=== PATIENT | female | born 1950 | race Caucasian/White ===

== ENCOUNTER 2021-02-20 07:46 | Outpatient (CLI) | payer MEDICARE, SELFPAY ==
[2021-02-20 08:01] LABS: Hematocrit 43.1 % (35.0-42.0); Hemoglobin 13.9 g/dL (11.7-13.8); Immature Platelet Fraction Pct 3.5 % (1.0-7.0); Mean Corpuscular HGB Conc 32.3 g/dL (32.0-36.0); Mean Corpuscular Hemoglobin 30.2 pg (27.0-31.0); Mean Corpuscular Volume 93.5 fL (78.0-102.0); Mean Platelet Volume 10.9 fl (9.2-11.8); Platelet Count Result 138 K/mm3 (150-420); Red Blood Count 4.61 M/mm3 (4.20-5.40); Red Cell Distribution Width 13.5 % (11.6-14.4); White Blood Count 5.2 K/mm3 (4.8-10.8)
[2021-02-20 09:40] LABS: Alanine Aminotransferase 7 U/L (14-59); Albumin Level 3.3 g/dL (3.4-5.0); Alkaline Phosphatase 97 U/L (46-116); Anion Gap 11 mmol/L (8-16); Aspartate Amino Transferase 26 U/L (15-37); Bilirubin,Total 0.9 mg/dL (0.00-1.00); Blood Urea Nitrogen 10 mg/dL (7-18); Calcium 8.1 mg/dL (8.5-10.1); Carbon Dioxide 28 mmol/L (21-32); Chloride 107 mmol/L (98-108); Cholesterol 163 mg/dL (0-200); Estimated Glomerular Filt Rate > 60; Glucose 90 mg/dL (70-99); HDL Direct 64 mg/dL (40-60); LDL Cholesterol Calculated 87 mg/dL (<130); Osmolality Calculated 301 mOsm/kg (285-295); Potassium 4.1 mmol/L (3.5-5.1); Sodium 146 mmol/L (136-145); Total Protein 7.4 g/dL (6.4-8.2); Triglycerides 58 mg/dL (0-150)
== END 2021-02-20 07:47 | disposition home or self-care (01) ==
LOC: CHSLAB 07:53
PROVIDERS: PCP Family Medicine; Visit Provider Family Medicine
DX: R03.0 Elevated blood-pressure reading, without diagnosis of hypertension (principal); E66.9 Obesity, unspecified
CPT/HCPCS: 36415; 80053; 80061; 85027; 85055

== ENCOUNTER 2021-05-25 13:30 | Outpatient (CLI) | payer MEDICARE, SELFPAY ==
--- NOTE | ~2021-05-25 | XR_ITS ---
EXAMINATION: XR knee LT 3V DATE: 05/25/2021 13:56 INDICATION: Left knee pain. TECHNIQUE: 3 views of left knee on 4 radiographs were obtained. COMPARISON: None. FINDINGS: Bone alignment is normal. No fracture. There is diffuse osteopenia. There is moderate osteo arthritis of medial compartment, severe osteoarthritis of patellofemoral compartment, and mild osteoa rthritis of lateral compartment. No knee joint effusion. IMPRESSION: 1. Severe left knee osteoarthritis. Reviewed, dictated and finalized at location A.
== END 2021-05-25 13:31 | disposition home or self-care (01) ==
LOC: CHSIMG 13:32
PROVIDERS: PCP Family Medicine; Visit Provider Family Medicine
DX: M25.562 Pain in left knee (principal)
CPT/HCPCS: 73562

== ENCOUNTER 2022-09-24 12:19 | Outpatient (NON) | payer MEDICARE, SELFPAY | END 2022-09-24 12:20 | disposition home or self-care (01) | LOC: CHSLAB 12:21 | PROVIDERS: Visit Provider Nurse Practitioner Family | DX: N63.0 Unspecified lump in unspecified breast (principal) | CPT/HCPCS: 87070; 87075; 87205 ==

== ENCOUNTER 2022-10-03 08:56 | Outpatient (CLI) | payer MEDICARE, SELFPAY ==
--- NOTE | ~2022-10-03 | MMUS_ITS ---
EXAMINATION: MM diagnostic sbyil BI w arben, US breast RT limited HISTORY: Patient with history of right breast cancer presents with palpable lump/skin lesion of the r ight breast TECHNIQUE: Craniocaudal, mediolateral, and mediolateral oblique 3-D tomosynthesis images of the breas ts were performed and synthetic 2-D images were generated. CAD analysis was submitted and interpreted . High resolution limited right breast ultrasound was performed. COMPARISON: 06/13/2016 BREAST PARENCHYMAL COMPOSITION: The breasts are almost entirely fatty. FINDINGS: MAMMOGRAPHIC FINDINGS: Right breast: There are lumpectomy changes in the right breast. There is a 1.5 x 1.0 cm hypodensity, lobulated mass of the skin of the lower breast projecting at the surgical scar. Left breast: No suspicious mass, calcification, or architectural distortion are identified to suggest malignancy. There has been no suspicious interval change. ULTRASOUND: There is a 1.5 x 0.7 cm oval, parallel isoechoic mass with a 6 mm internal hypoechoic component, post erior acoustic enhancement and associated internal vascularity at the 6:00 location near the nipple c orresponding to the palpable abnormality of concern. IMPRESSION: 1. Indeterminate mass of the right breast corresponding to the visual/palpable abnormality of concern . 2. Biopsy is recommended, surgical versus punch biopsy. BI-RADS category 4, suspicious findings. Reviewed, dictated and finalized at location A. [employer]AIR IMPRESSION: 1. Indeterminate mass of the right breast corresponding to the visual/palpable abnormality of concern. 2. Biopsy is recommended, surgical versus punch biopsy. BI-RADS category 4, suspicious findings.
== END 2022-10-03 08:57 | disposition home or self-care (01) ==
LOC: CHSIMG 08:59
PROVIDERS: PCP Nurse Practitioner Family; Visit Provider Nurse Practitioner Family
DX: N63.10 Unspecified lump in the right breast, unspecified quadrant (principal); Z85.3 Personal history of malignant neoplasm of breast; R92.8 Other abnormal and inconclusive findings on diagnostic imaging of breast
CPT/HCPCS: 76642; 77062; 77066; G0279

== ENCOUNTER 2022-10-16 00:38 | Day surgery (SDC) | payer MEDICARE, SELFPAY ==
[2022-10-09 08:58] VITALS: BMI 45.9
--- NOTE | 2022-10-09 09:19 | PC.NURSE ---
Addendum entered by Corinne Wallace RN 10/09/22 09:20: HIBICLEWALTER SHOWER MORNING OF SURGERY, PT RELAYS UNDERSTANDING. Original Note: Report to the Outpatient Waiting Room, entrance under the green pavilion located off [address], at time __11:30AM on date __10/16/22 . Planned Procedure Time: _1:30PM . Time changes happen often and if your time is changed the preop area will call you the afternoon before. - You and your visitor will be asked to self-screen and do not enter if you have any COVID symptoms. - Only one visitor is requested with a max of two and NO children visitors are allowed at this time. - The patient visitor may be requested to leave or wait in car when not with patient due to distancing restrictions. - A mask is optional within the hospital at this time. Patients may have clear liquids (water, carbonated beverages, clear teas, apple juice) until 3 hours prior to surgery with a maximum of 20 ounces. - No food from midnight until time of surgery Take the following medications with a SIP of water the morning of surgery: __NONE DO NOT STOP ANY OF YOUR OTHER PRESCRIPTION MEDICATIONS PRIOR TO SURGERY ?EXCEPT THE FOLLOWING Medications to discontinue per physician NONE Date to take last dose Please no make-up, nail austrian, hairspray, perfume, deodorant, or body powder the day of surgery. No jewelry (including any body piercings) or valuables the day of surgery, leave them at home. Please take a shower or bath the night before, or the morning of, surgery with an antibacterial soap. Wear comfortable, loose fitting clothing. Children are encouraged to wear pajamas. - Jewelry must be removed prior to entering the operating room. Rings and piercings that are not removed may be cut off. - The hospital will not accept responsibility for valuables. - Please leave all valuables, including medications, at home the day of surgery. If you are going home after surgery, a licensed local company hazmat driver must drive you home. - NO public transportation without another adult if you receive anesthesia. - We recommend that an adult stay with you for 24 hours following discharge. - We also recommend that you do not drive, make important decision, drink alcoholic beverages, or take any drugs that were not prescribed by your health care provider for at least 24 hours after your discharge time. Follow any additional instructions given to you from your surgeon. If you or anyone in your household have experienced Covid symptoms in the past week, please notify your surgeon or the nurse liaison at the phone number below for possible testing. Telephone instructions given to __PATIENT and asked if any additional questions and then verbalized understanding. Patient advised to call surgeon office or pre surgery nurse liaison [phone] if any additional questions.
[2022-10-16 11:35] VITALS: BP 149/82; PULSE 80; RESP 16; TEMP 36.3; O2SAT 99
[2022-10-16] MEDS: ACETAMINOPHEN 500 MG TABLET 1000 MG PO (11:44)
[2022-10-16] MEDS: LACTATED RINGERS 1,000 ML 30 ML IV CONT (12:00)
--- NOTE | 2022-10-16 12:00 | P.PNAN_ITS ---
Anes - Initial Pre Proc Eval Procedure: Operation Date: 10/16/22 13:30 Proposed Procedures p Excisional Biopsy Right Breast Mass - Jaelyn Dick MD Date/Time: 10/16/22 12:00 Surgeon: Jaelyn Dick MD Pre Op Diagnosis: right breast mass Patient Data Age: 71 Gender: F Height: 1.57 m Weight: 114 kg Allergies Allergy/AdvReac Type Severity Reaction Status Date / Time No Known Allergies Allergy Verified 10/16/22 11:41 Home Medications Medication Instructions Recorded Confirmed Type acetaminophen 500 mg tablet 1,000 mg PO HS 10/09/22 10/16/22 History diphenhydramine HCl 25 mg capsule 50 mg PO HS 10/09/22 10/16/22 History Patient hx anesthesia problems: none Family hx anesthesia problems: none Results Review: All pre-operative results and documents have been reviewed as part of the pre- operative evaluation. [facility] Past Medical History Medical History History of breast cancer Dx'd 2016 No active medical problems Surgical History Surgical History History of appendectomy History of cholecystectomy S/P lumpectomy of breast 2018 Family History Family History Father Alzheimer disease Mother Cancer Unknown Diabetes mellitus Heart disease Hypertension Cancer Social History Social History Smoking status: Never smoker Alcohol intake: current Substance use: never Living arrangements: alone Spiritual care concerns: No Anes - Eval Final PreProcedure Day of Procedure 10/16/22 12:00 Patient weight: morbidly obese Heart: regular rate and rhythm Lungs: clear to auscultation Airway: Mallampati scale class II Neurological: alert and oriented Last oral intake: >/= 8 hours ASA classification: III Emergent: no Anesthetic plan: proceed Anesthesia type and monitoring: general GIVS and standard monitoring Results Review: All pre-operative results and documents have been reviewed as part of the pre- operative evaluation. Informed Consent: The patient's anesthetic plan and its attendant risks and benefits were discussed with the patient/family/POA. Questions were solicited and answers provided to the satisfaction of the patient/family/POA.
[2022-10-16] MEDS: KETOROLAC 15 MG/ML VIAL (*BKC) IV PUSH (12:01)
--- NOTE | 2022-10-16 12:02 | WPDHPUPDATE1 ---
History and Physical Update Update Date/Time: 10/16/22 12:02 History and Physical has been reviewed, including an updated exam of the patient. There are NO changes in the patient's condition. Risks, benefits, and alternatives have been discussed and questions answered. Patient agrees to proceed with procedure.
[2022-10-16] MEDS: ceFAZolin 2 GM/D5W 50 ML 2 GM/50 ML BAG IVPB (12:06)
[2022-10-16] MEDS: BUPIVACAINE/EPINEPHRINE 0.25% 50 ML VIAL 10 ML INFILTRATE (12:40)
--- NOTE | 2022-10-16 12:51 | W.PM.PROC2 ---
Procedure Note - Detailed Date of Procedure 10/16/22 Pre-op Diagnosis right breast mass Post-op Diagnosis Same Procedure Performed Right breast lumpectomy Surgeon Jaelyn Dick MD Anesthesia General Indications 71-year-old female with history of right breast cancer presenting with fungating mass overlying previous lumpectomy incision Findings 2 x 2 cm fungating mass projecting over previous lumpectomy incision Description of Procedure The patient was taken to the operating room and placed in the supine position. After adequate induction of general anesthesia, the patient was prepped and draped in the normal sterile fashion. A time-out was then done to verify the patient's identity, as well as the procedure being performed. I then made an elliptical incision in the dermis encompassing this fungating mass in the lower portion of her right breast. The mass measured approximately 2 x 2 cm. The incision was taken down through the dermis and into the breast tissue. I did excise some of the underlying breast tissue although no obvious mass was noted there was some scar tissue as well as calcification. Once this area was excised, I did rubens the specimen with a short stitch superiorly and a long stitch laterally. There was an area of fullness, calcification in the posterior bed of our excision site. Given this, I did go ahead and excise further posterior margin. These areas will be sent to pathology for further review. I then copiously irrigated the cavity. Local anesthetic was placed in the cavity. Hemostasis was gained with the Bovie cautery. The subcutaneous tissue was closed with 3-0 Vicryl suture. The skin was closed with 4-0 Monocryl subcuticular suture. Dermabond was placed on the wound. The patient tolerated the procedure well and will be transferred to the recovery room in stable condition. Estimated Blood Loss 5 Pathology Yes Complications No immediate complications Condition Stable Disposition PACU [facility] Billing Surgery - Charge Forward: Surgery Billing
[2022-10-16 12:53] VITALS: BP 111/63; PULSE 85; RESP 14; O2SAT 91
[2022-10-16 13:20] VITALS: BP 125/81; PULSE 66; O2SAT 92
[2022-10-16 13:50] VITALS: BP 138/78; PULSE 65
== END 2022-10-16 14:00 | disposition home or self-care (01) ==
PROVIDERS: PCP Nurse Practitioner Family; Visit Provider Surgery
PROC: (CPT 19301; principal; 2022-10-16 13:30)
DX: C50.811 Malignant neoplasm of overlapping sites of right female breast (principal); E66.01 Morbid (severe) obesity due to excess calories; Z68.42 Body mass index [BMI] 45.0-49.9, adult
CPT/HCPCS: 19301; 88307; 88342; A9270; J0690; J1100; J1885; J2405; J2704; J7120

== ENCOUNTER 2022-11-07 12:05 | Outpatient (CLI) | payer MEDICARE, SELFPAY ==
--- NOTE | ~2022-11-07 | PE_ITS ---
EXAMINATION: PET skull to mid thigh DATE: 11/07/2022 14:29 INDICATION: Malignant neoplasm of right breast. TECHNIQUE: Blood glucose level was 88 mg/dL. 9.815 mCi of 18-fluorodeoxyglucose (18-FDG) was administ ered i.v. Low dose computed tomography (CT) images were acquired from the base of the brain to the pr oximal thighs for attenuation correction and anatomic localization. Automated exposure control was em ployed. Dose-length product (DLP) was 1116 mGy-cm. Positron emission tomography (PET) images were acq uired in the same distribution. COMPARISON: None FINDINGS: Head/neck: There are no pathologically enlarged lymph nodes. Chest: There is no pneumonia or pleural effusion. The heart size is normal. There are coronary artery calcifications. No pericardial effusion. There are no pathologically enlarged lymph nodes. There is a 5.6 x 4.3 cm mass in right breast measuring low-attenuation without increased activity, likely post surgical change. The right breast demonstrates skin thickening with increased activity. There are mul tiple healing left rib fractures. Abdomen/pelvis/proximal thighs: The liver demonstrates surface nodularity, consistent with cirrhosis. There is mild splenomegaly. There is a splenorenal portacaval shunt. The pancreas, adrenal glands, a nd kidneys are normal. There are no dilated loops of bowel. The appendix is not visualized. There are no pathologically enlarged lymph nodes. There is no free intraperitoneal fluid. There is no osseous malignancy. IMPRESSION: 1. Skin thickening with increased activity in right breast, most likely inflammation. 2. No evidence of metastatic disease. 3. Cirrhosis of the liver with portal venous hypertension. Reviewed, dictated and finalized at location A. IMPRESSION: 1. Skin thickening with increased activity in right breast, most likely inflamm ation. 2. No evidence of metastatic disease. 3. Cirrhosis of the liver with portal venous hypertension.
[2022-11-07 12:37] LABS: Glucose Point of Care 88 mg/dl (65-105)
== END 2022-11-07 12:06 | disposition home or self-care (01) ==
LOC: ANHIMG 12:09
PROVIDERS: PCP Nurse Practitioner Family; Visit Provider Surgery
DX: C50.511 Malignant neoplasm of lower-outer quadrant of right female breast (principal); K74.60 Unspecified cirrhosis of liver; K76.6 Portal hypertension; R23.4 Changes in skin texture
CPT/HCPCS: 78815; A9552

== ENCOUNTER 2022-12-16 11:16 | Outpatient (CLI) | payer MEDICARE, SELFPAY | END 2022-12-16 11:17 | disposition home or self-care (01) | PROVIDERS: PCP Family Medicine; Visit Provider Surgery | DX: C50.911 Malignant neoplasm of unspecified site of right female breast (principal); Z01.818 Encounter for other preprocedural examination | CPT/HCPCS: 36415; 86850; 86900; 86901 ==

== ENCOUNTER 2022-12-19 01:13 | Day surgery (SDC) | payer MEDICARE, SELFPAY ==
--- NOTE | 2022-12-11 12:53 | PC.NURSE ---
Report to the Outpatient Waiting Room, entrance under the green pavilion located off [facility], at time __0600 on date _12/19/22 . Planned Procedure Time: 729 . Time changes happen often and if your time is changed the preop area will call you the afternoon before. - You and your visitor will be asked to self-screen and do not enter if you have any COVID symptoms. - A mask is optional within the hospital at this time. Patients may have clear liquids (water, carbonated beverages, clear teas, apple juice) until 3 hours prior to surgery with a maximum of 20 ounces. - No food from midnight until time of surgery - Infants may have breast milk until 4 hours before surgery, infant formula 6 hours prior to surgery. - Children will be allowed to drink immediately following surgery. If applicable, please bring a bottle or sippy cup to assist with drinking. Juice, water, soda, and popsicles are readily available. For infants on formula, please bring formula the day of surgery. Pacifiers are allowed. Take the following medications with a SIP of water the morning of surgery: ___NONE DO NOT STOP ANY OF YOUR OTHER PRESCRIPTION MEDICATIONS PRIOR TO SURGERY ?EXCEPT THE FOLLOWING Medications to discontinue per physician NONE Date to take last dose HIBICLENS SHOWER MORNING OF SURGERY Please no make-up, nail sudanese, hairspray, perfume, deodorant, or body powder the day of surgery. No jewelry (including any body piercings) or valuables the day of surgery, leave them at home. Please take a shower or bath the night before, or the morning of, surgery with an antibacterial soap. Wear comfortable, loose fitting clothing. Children are encouraged to wear pajamas. - Jewelry must be removed prior to entering the operating room. Rings and piercings that are not removed may be cut off. - The hospital will not accept responsibility for valuables. - Please leave all valuables, including medications, at home the day of surgery. If you are going home after surgery, a licensed otr company truck driver must drive you home. - NO public transportation without another adult if you receive anesthesia. - We recommend that an adult stay with you for 24 hours following discharge. - We also recommend that you do not drive, make important decision, drink alcoholic beverages, or take any drugs that were not prescribed by your health care provider for at least 24 hours after your discharge time. For Pediatric surgeries, we recommend two adults accompany the child home. Follow any additional instructions given to you from your surgeon. If you or anyone in your household have experienced Covid symptoms in the past week, please notify your surgeon or the nurse liaison at the phone number below for possible testing. Telephone instructions given to _PATIENT and asked if any additional questions and then verbalized understanding. Patient advised to call surgeon office or pre surgery nurse liaison [phone] if any additional questions.
[2022-12-11 12:59] VITALS: BMI 45.5
--- NOTE | 2022-12-18 14:05 | P.PNAN_ITS ---
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 Patient Data Age: 71 Gender: F Height: 1.57 m Weight: 112.95 kg Allergies Allergy/AdvReac Type Severity Reaction Status Date / Time No Known Allergies Allergy Verified 12/19/22 06:36 Home Medications Medication Instructions Recorded Confirmed Type acetaminophen 500 mg tablet 1,000 mg PO HS 10/09/22 12/19/22 History diphenhydramine HCl 25 mg capsule 50 mg PO HS 10/09/22 12/19/22 History docusate sodium 100 mg capsule 100 mg PO BID #30 caps 10/16/22 12/11/22 Rx (Colace) Patient hx anesthesia problems: none Family hx anesthesia problems: none Results Review: All pre-operative results and documents have been reviewed as part of the pre- operative evaluation. [facility] Past Medical History Medical History (Updated 12/18/22 @ 14:06 by Shayan Sorenson DO) History of breast cancer dx 2017, history of right breast lumpectomy in 2018. Surgical History Surgical History (Updated 12/18/22 @ 14:06 by Shayan Sorenson DO) History of appendectomy History of cholecystectomy History of gastric bypass History of lumpectomy of right breast 10/16/2022 S/P lumpectomy of breast 2018 Family History Family History Father Alzheimer disease Mother Cancer Unknown Diabetes mellitus Heart disease Hypertension Cancer Social History Social History Smoking status: Never smoker Alcohol intake: current Substance use: never Living arrangements: alone Spiritual care concerns: No Anes - Eval Final PreProcedure Day of Procedure 12/18/22 14:05 Patient weight: morbidly obese Heart: regular rate and rhythm Lungs: clear to auscultation Airway: Mallampati scale class III and special considerations poor dentition (loose on bottom) Neurological: alert and oriented Last oral intake: >/= 8 hours ASA classification: III Emergent: no Anesthetic plan: proceed Anesthesia type and monitoring: general ETT and standard monitoring Results Review: All pre-operative results and documents have been reviewed as part of the pre- operative evaluation. Informed Consent: The patient's anesthetic plan and its attendant risks and benefits were discussed with the patient/family/POA. Questions were solicited and answers provided to the satisfaction of the patient/family/POA.
[2022-12-19] VITALS (13 sets, daily range): BP systolic 116–150; BP diastolic 57–96; PULSE 64–93; RESP 12–18; TEMP 36.2–36.7; O2SAT 94–98
[2022-12-19] MEDS: ACETAMINOPHEN 500 MG TABLET 1000 MG PO (06:31)
[2022-12-19] MEDS: LACTATED RINGERS 1,000 ML 30 ML IV CONT (06:48)
[2022-12-19] MEDS: KETOROLAC 15 MG/ML VIAL (*BKC) IV PUSH (06:49)
--- NOTE | 2022-12-19 07:21 | WPDHPUPDATE1 ---
History and Physical Update Update Date/Time: 12/19/22 07:21 History and Physical has been reviewed, including an updated exam of the patient. There are NO changes in the patient's condition. Risks, benefits, and alternatives have been discussed and questions answered. Patient agrees to proceed with procedure.
[2022-12-19] MEDS: ceFAZolin 2 GM/D5W 50 ML 2 GM/50 ML BAG IVPB (07:29)
[2022-12-19] MEDS: BUPIVACAINE/EPINEPHRINE 0.5% 50 ML VIAL 30 ML INFILTRATE (08:08)
--- NOTE | 2022-12-19 09:32 | P.OP_ITS ---
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 Patient has had previous right breast lumpectomy, adjuvant chemo radiation for breast cancer. Findings Inflammatory changes of the right breast dermis involving previous biopsy site Description of Procedure The patient was taken the operating room and placed in the supine position. After induction of general anesthesia, the patient was prepped and draped in the normal sterile fashion. A time-out was then done to verify the patient's identity as well as the procedure being performed. I then made the incision in the left breast. This was done in a elliptical shape to allow good skin closure. Once incision was made, this was taken down to the breast tissue. I then began to make my superior by the breast tissue off the overlying dermis. This was done until we reached the clavicle. I then made my inferior flap by the breast tissue off the overlying dermis to the inframammary fold. The medial margin was taken to the sternum and the lateral margin was taken to the anterior border of the latissimus. Once these margins were achieved, I began to take the breast tissue off the underlying chest wall. I was then able to detach the breast tissue completely and this was sent to pathology for further review. The the specimen was marked with a short stitch superiorly and a long stitch laterally. At this point I copiously irrigated the cavity. No other obvious pathology was noted. I left a 15 New Zealander drain in the mastectomy bed coming out through an incision in the left lateral chest wall. The incision was then closed with interrupted 3-0 Vicryl sutures in the subcutaneous space. Skin was closed with 4-0 Monocryl subcuticular suture. I then proceeded to the right side. Of note, the area of the previous biopsy and inferior breast had his skin thickening, as well as darkening of the dermis. I made the incision to incorporate this skin in the excision site. Again the incision was taken down to the breast tissue and flaps were raised both superior and inferior. The same margins were used as before, superior to the clavicle, inferior to the inframammary fold, medial to the sternum, and lateral to the anterior border of the latissimus. The tissue was then removed from the underlying pectoral muscle. Once removed, the specimen was marked with a short stitch superiorly and a long stitch laterally. Again I copiously irrigated the cavity and no other gross pathology was noted. I then left a 15 New Zealander drain in the mastectomy bed coming out of an incision in the right lateral chest wall. I then closed the subcutaneous tissue with interrupted 3-0 Vicryl suture. The skin was closed with 4-0 Monocryl subcuticular suture. The patient tolerated the procedure well and was extubated in the operating room postoperatively. She will be sent to the recovery room in stable condition. Estimated Blood Loss 100 Drains Yes Pathology Yes Complications No immediate complications Condition Stable Disposition PACU [facility] Billing Surgery - Charge Forward: Surgery Billing
[2022-12-19] MEDS: fentaNYL CITRATE INJ (*CRX) 100 MCG/2 ML VIAL 25 MCG IV PUSH ×6 (09:51→10:38)
--- NOTE | 2022-12-19 10:50 | SUR.PHASEI ---
Spoke with Dr. Dick regarding if it was okay to use patient's arms d/t bilateral mastectomy. States okay for blood draws and/or BP in either arm.
--- NOTE | 2022-12-19 11:32 | ADMGEN ---
This patient, Faiza Davis, was admitted to Medical Room 251-01. Patient/family oriented to hospital policies and general routines including ID bracelet, bed and alarms, visiting hours, pain management, procedures, bathroom and other care routines, personal items, smoking policy, room service/diet, and visiting hours. Information on how to activate the Rapid Response Team has been discussed. Patient/Family are encouraged to report perceived risks to care and to ask questions if they do not understand what they are told or what they should do.
[2022-12-19] MEDS: LACTATED RINGERS 1,000 ML 100 ML IV CONT (11:33)
[2022-12-19] MEDS: HYDROcodone/acetaminophen (*CRX) 7.5-325 MG TABLET 1 TAB PO (15:36)
[2022-12-19] MEDS: DOCUSATE SODIUM 100 MG CAPSULE PO (17:02)
[2022-12-19] MEDS: MORPHINE SULFATE (*CRX) 2 MG/ML INJ IV PUSH (17:02)
[2022-12-20 01:30] VITALS: BP 123/63; PULSE 66; RESP 16; TEMP 36.6; O2SAT 98
[2022-12-20] MEDS: MORPHINE SULFATE (*CRX) 2 MG/ML INJ IV PUSH (02:55)
[2022-12-20 05:20] VITALS: BP 124/58; PULSE 72; RESP 18; TEMP 36.7; O2SAT 98
[2022-12-20] MEDS: DOCUSATE SODIUM 100 MG CAPSULE PO (08:16)
[2022-12-20] MEDS: ENOXAPARIN 40 MG/0.4 ML SYRINGE SUB-Q (08:16)
--- NOTE | 2022-12-20 08:43 | PM.PNGS ---
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 - Malignant neoplasm of unspecified site of right female breast Status: Acute Assessment and Plan: doing well, s/p bilateral mastectomy, await path, ok to dc home today Subjective Subjective Date/Time Seen: 12/20/22 08:43 Interval history: feels good, pain controlled, mary diet Review of Systems Review of Systems: All systems reviewed & are unremarkable except as noted in HPI and below Exam Const: General: cooperative, comfortable and no acute distress Chest: Other: bilateral mastectomy sites - C/D/I, FRANCINE x 2 c mod s/s drainage Resp: Auscultation: clear to auscultation bilaterally Cardio: Rate: regular rate Rhythm: regular rhythm GI: Inspection: normal to inspection Objective Data Vital Signs Vital Signs: Vital Signs - 24 hr 12/19/22 09:40 12/19/22 09:55 12/19/22 10:05 Temperature 36.4 C L Pulse Rate 69 69 Respiratory Rate 14 12 Blood Pressure 122/66 116/66 Pulse Oximetry 95 95 Oxygen Delivery Simple Face Mask Simple Face Mask Nasal Cannula Oxygen Flow Rate 8 8 2 12/19/22 10:10 12/19/22 10:25 12/19/22 10:40 Temperature Pulse Rate 71 64 70 Respiratory Rate 16 12 16 Blood Pressure 123/69 124/68 124/66 Pulse Oximetry 95 95 97 Oxygen Delivery Nasal Cannula Nasal Cannula Nasal Cannula Oxygen Flow Rate 2 2 2 12/19/22 10:55 12/19/22 11:35 12/19/22 11:50 Temperature 36.4 C Pulse Rate 75 71 72 Respiratory Rate 18 18 18 Blood Pressure 120/71 127/57 L 130/64 Pulse Oximetry 97 94 95 Oxygen Delivery Nasal Cannula Oxygen Flow Rate 2 12/19/22 12:20 12/19/22 13:20 12/19/22 17:20 Temperature 36.4 C L 36.4 C 36.2 C L Pulse Rate 77 77 78 Respiratory Rate 18 18 18 Blood Pressure 122/61 119/64 119/64 Pulse Oximetry 96 98 95 Oxygen Delivery Oxygen Flow Rate 12/19/22 19:40 12/19/22 20:45 12/20/22 01:30 Temperature 36.7 C 36.6 C Pulse Rate 70 66 Respiratory Rate 16 16 Blood Pressure 134/84 123/63 Pulse Oximetry 97 98 Oxygen Delivery Room Air Oxygen Flow Rate 12/20/22 05:20 Temperature 36.7 C Pulse Rate 72 Respiratory Rate 18 Blood Pressure 124/58 L Pulse Oximetry 98 Oxygen Delivery Oxygen Flow Rate Intake/Output Intake/Output: Intake & Output 12/17/22 12/18/22 12/19/22 12/20/22 23:59 23:59 23:59 23:59 Intake Total 910 300 Output Total 70 125 Balance 840 175 Meds/Results Medications: Active Medications Generic Name Dose Route Start Last Admin Trade Name Freq PRN Reason Stop Dose Admin Acetaminophen 500 mg 12/19/22 09:27 Acetaminophen 500 Mg Tablet PO Q6H PRN Mild Pain (1-3) or Fever Hydrocodone Bitart/Acetaminophen 1 tab 12/19/22 09:27 12/19/22 15:36 Hydrocodone/Acetaminophen (*Crx) 7.5-325 Mg Tablet PO 1 tab Q4H PRN Administration Pain Rated 7-10 Hydrocodone Bitart/Acetaminophen 1 tab 12/19/22 15:43 Hydrocodone/Acetaminophen (*Crx) 5-325 Mg Tablet PO Q4H PRN Pain Rated 4-6 Diphenhydramine HCl 25 mg 12/19/22 09:27 Diphenhydramine Hcl Inj 50 Mg/Ml Vial IV PUSH Q6H PRN Itching Docusate Sodium 100 mg 12/19/22 17:00 12/20/22 08:16 Docusate Sodium 100 Mg Capsule PO 100 mg BID NOEL Administration Enoxaparin Sodium 40 mg 12/20/22 09:00 12/20/22 08:16 Enoxaparin 40 Mg/0.4 Ml Syringe SUB-Q 40 mg DAILY NOEL Administration Morphine Sulfate 4 mg 12/19/22 09:27 Morphine Sulfate (*Crx) 4 Mg/Ml Inj IV PUSH Q2H PRN Pain Rated 7-10 Morphine Sulfate 2 mg 12/19/22 09:27 12/20/22 02:55 Morphine Sulfate (*Crx) 2 Mg/Ml Inj IV PUSH 2 mg Q2H PRN Administration Pain Rated 4-6 Naloxone HCl 0.1 mg 12/19/22 09:27 Naloxone Hcl 0.4 Mg/Ml Vial IV PUSH Q2M PRN Opiate Reversal Ondansetron HCl 4 mg 12/19/22 09:27 Ondansetron Inj 4 Mg/2 Ml Vial IV PUSH Q4H PRN Nausea And Vomitin
--- NOTE | 2022-12-20 08:54 | PM.DS ---
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 The patient had previous right breast cancer status post chemo radiation. Years later, the patient has developed a angiosarcoma of the right breast. The patient was taken to the operating room and bilateral mastectomy was done, see full operative report for details of that procedure. Postoperatively, the patient did well and was transferred to the surgical floor. The patient continued to do well overnight and was up and ambulating without issue. She was able to tolerate a regular diet for breakfast and her pain was well controlled. At this time, I will remove her drains at the bedside and she will be discharged home with p.o. analgesia. The patient will follow up with me in 2 weeks. Status at Discharge Functional status at discharge: independent ambulation Overall status at discharge: patient is progressing back to baseline Time Spent with Patient Time attestation: Total time spent providing and/or coordinating discharge services: Time spent: Less than 30 minutes Exam Const: General: cooperative, comfortable and no acute distress Chest: Other: bilateral mastectomy sites C/D/I, FRANCINE c mod s/s draiange Resp: Auscultation: clear to auscultation bilaterally GI: Inspection: normal to inspection DS: Data Data Completed and Pending Pending studies at discharge: Pending at discharge 12/19/22 08:35 Surgical [PTH] Routine Surgical [PTH] Routine Discharge Plan Discharge Attending physician on discharge: Jaelyn Dick Discharging Clinician: Jaelyn Dick Anticipated Discharge Date/Time: 12/20/22 08:45 Patient Disposition: Home, Self-Care Activity: may shower and no straining Diet: as tolerated Wound Care Instructions: keep dressing dry, remove dressing to shower and change dressing daily Patient Instructions: Antibiotic Form Stand Alone Forms: General Discharge Information Follow-up/Referrals: Jaelyn Dick MD [Physician] - 2 Weeks Discharge Medications: New oxycodone-acetaminophen [Percocet] 7.5-325 mg tablet 1 tablet PO Q6H PRN (Reason: pain) Qty: 30 0RF Continued acetaminophen 500 mg Tablet 1,000 mg PO HS diphenhydramine HCl 25 mg Capsule 50 mg PO HS docusate sodium [Colace] 100 mg capsule 100 mg PO BID Qty: 30 0RF Patient Comments: PRN Date of admission: 12/19/22 09:28 Primary Care Provider: Franklin Joseph Admitting Provider: Jaelyn Dick Attending physician on admission: Jaelyn Dick Condition: Stable
--- NOTE | 2022-12-20 09:02 | PC.NURSE ---
Per verbal discussion with Dr. Dick, this nurse was instructed to discontinue and remove both drains-orders were entered by this nurse to D/C drains. Also, put in orders per the request of Dr. Dick to change PRN Flexeril to Q6H instead of the Q8H. Per Dr. Dick new orders were entered for Morphine 2mg Q4H PRN for pain.
== END 2022-12-20 08:46 | disposition home or self-care (01) ==
LOC: ANHSURGERY 06:08 → ANH2MED 12-20 08:54
PROVIDERS: PCP Family Medicine; Visit Provider Surgery
PROC: (CPT 19307; principal; 2022-12-19 07:30)
DX: C50.911 Malignant neoplasm of unspecified site of right female breast (principal); Z80.3 Family history of malignant neoplasm of breast; Z98.84 Bariatric surgery status; E66.01 Morbid (severe) obesity due to excess calories; Z68.42 Body mass index [BMI] 45.0-49.9, adult
CPT/HCPCS: 19303; 88307; 88342; A9270; J0330; J0690; J1100; J1170; J1650; J1885; J2250; J2270; J2370; J2405; J2704; J2710; J3010; J7120